=== PATIENT | female | born 1970 ===

== ENCOUNTER 2017-03-24 14:10 | Emergency (ER) | payer OTHER ==
[2017-03-24 14:33] VITALS: RESP 18; TEMP 97.3
[2017-03-24] MEDS ORDERED: Absorbable Gelatin Sponge Size 12-7 ONE (14:40)
[2017-03-24 15:46] VITALS: BP 124/72; PULSE 71; O2SAT 98
--- NOTE | 2017-03-24 22:26 | C.PDOC ---
History Of Present Illness 46 year old female presents to the ED with complaints of injury to the left index finger sustained prior to arrival. Patient reports she reached into a drawer and grabbed the blade end of a knife instead of the handle. She notes she began to bleed right away and was well controlled with prressure. Patient states knife was clean and tetanus vaccine is not up to date. She denies other complaints. Chief Complaint (Nursing): Abnormal Skin Integrity History Per: Patient History/Exam Limitations: no limitations Onset/Duration Of Symptoms: Hrs Current Symptoms Are (Timing): Still Present Location Of Injury: Left: Hand (index finger) Quality Of Symptoms: Other Recent travel outside of the [place]: No Past Medical History Reviewed: Historical Data, Nursing Documentation, Vital Signs Vital Signs: Last Vital Signs Temp 97.3 F L 03/24/17 14:29 Pulse 71 03/24/17 15:46 Resp 18 03/24/17 15:46 BP 124/72 03/24/17 15:46 Pulse Ox 98 03/24/17 22:28 Family History: States: Unknown Family Hx - Social History Hx Alcohol Use: No Hx Substance Use: No - Immunization History Hx Tetanus Toxoid Vaccination: No Review Of Systems Skin: Positive for: Other (injury to left finger ) Neurological: Negative for: Weakness, Numbness Physical Exam - Physical Exam Appears: Non-toxic, No Acute Distress Skin: Warm, Dry, Other (Avulsion to tip of left second digit, bleeding easily controlled with minimal pressure. No involvement of the nail. ) Extremity: Normal ROM, No Tenderness, Capillary Refill (good capillary refill, less than two seconds ), No Swelling Neurological/Psych: Oriented x3 ED Course And Treatment O2 Sat by Pulse Oximetry: 98 (RA) Progress Note: Patient was given Keflex and Tetanus vaccine. Wound was bandaged and patient instructed to follow up with PMD in 1-2 days. Disposition - Disposition Referrals: [facility] [Outside] [facility] [Outside] Disposition: HOME/ ROUTINE Disposition Time: 15:20 Condition: GOOD Additional Instructions: Thank you for letting us take care of you today. Your provider was Dr. Waldrop. You were treated for a skin avulsion. The emergency medical care you received today was directed at your acute symptoms. If you were prescribed any medication, please fill it and take as directed. It may take several days for your symptoms to resolve. Return to the Emergency Department if your symptoms worsen, do not improve, or if you have any other problems. Please contact your doctor or call one of the physicians/clinics you have been referred to that are listed on the Patient Visit Information form that is included in your discharge packet. Bring any paperwork you were given at discharge with you along with any medications you are taking to your follow up visit. Our treatment cannot replace ongoing medical care by a primary care provider (PCP) outside of the emergency department. Thank you for allowing the [facility] team to be part of your care today. Take presciption medication as directed. Follow up with the clinic in 2-3 days for re-evaluation and further management. Claire por dejarnos atenderlo damon. Shi proveedor fue el Dr. Waldrpo. Te trataron por david avulsin cutnea. La atencin mdica de emergencia que recibi hoy estaba dirigida a brigitte sntomas agudos. Si le prescribieron algn medicamento , llnelo y tome segn las indicaciones. Brigitte sntomas pueden tardar varios zhang en resolverse. Regrese al Departamento de Emergencia si brigitte sntomas empeoran, no mejoran o si tiene algn otro problema. Comunquese con shi mdico o llame a keith de los mdicos / clnicas a los que fowler sido referido que figura en el formulario de Informacin de visita del paciente que se incluye en shi paquete de rody. Traiga todos los documentos que recibi al momento del rody junto con los medicamentos que est tomando en shi visita de seguimiento. Nuestro tratamiento no puede reemplazar la atencin mdica en curso por parte de un proveedor de atencin primaria (PCP) fuera del departamento de emergencias. Claire por permitir que el equipo de [facility] sea parte de shi cuidado hoy. Albin los medicamentos recetados segn las indicaciones. Nithin un seguimiento con la clnica en 2-3 zhang para david nueva evaluacin y ms administracin. Prescriptions: Cephalexin [cephalexin] 500 mg PO Q8 #21 cap Instructions: Skin Avulsion (ED) Forms: Gen Discharge Inst Greek Print Language: FRISIAN - Clinical Impression Clinical Impression: Avulsion of skin of index finger - Scribe Statement The provider has reviewed the documentation as recorded by the Scribe [place] All medical record entries made by the Bonnieibe were at my direction and personally dictated by me. I have reviewed the chart and agree that the record accurately reflects my personal performance of the history, physical exam, medical decision making, and the department course for this patient. I have also personally directed, reviewed, and agree with the discharge instructions and disposition.
== END 2017-03-24 15:50 | disposition home or self-care (01) ==
LOC: C.ER 14:10
DX: S61.201A Unspecified open wound of left index finger without damage to nail, initial encounter (principal); W26.0XXA Contact with knife, initial encounter